=== PATIENT | female | born 1995 | race Caucasian/White ===

== ENCOUNTER → 2018-01-10 | Outpatient (CLI) | payer OTHER ==
[2018-01-10 10:46] LABS: THYROID STIM HORMONE (TSH) 1.352 uIU/mL (0.358-3.74)
== END | disposition home or self-care (01) ==
LOC: ECHO 08:54
DX: R55 Syncope and collapse (principal); R06.02 Shortness of breath
CPT/HCPCS: 36415; 84443; 85379; 93306